=== PATIENT | male | born 1935 | race Caucasian/White ===

== ENCOUNTER 2017-10-21 13:55 | Observation (INO) | payer MEDICARE ==
[2017-10-21] VITALS (12 sets, daily range): BP systolic 96–148; BP diastolic 37–76
[~2017-10-21] VITALS: Ht 175.3 cm; Wt 84.2 kg
[~2017-10-21 13:55] MED LIST: ALLO300T8 PO; CARV6.253 PO; LEVO50TA8 PO; LISI-600 PO; MECL12.584 PO; NITR0.4T51 SL; OMEP20CA10 PO; SIMV20TA5 PO; TRAZ-143 PO
[2017-10-21] MEDS ORDERED: diphenhydrAMINE 25mg capsule PO PRN (14:25)
[2017-10-21] MEDS ORDERED: LORazepam 0.5 MG tablet PO PRN (14:25)
[2017-10-21] MEDS ORDERED: normal saline 1000ml 1,000 ML IV SCH (14:25)
[2017-10-21 15:19] LABS: PARTIAL THROMBOPLASTIN TIME 25 SECONDS (22-32); PROTHROMBIN TIME 10.6 SECONDS (9.0-12.0)
[2017-10-21] MEDS ORDERED: ASPI-920 PO (15:47)
[2017-10-21] MEDS ORDERED: atropine 0.1mg/ml 10ml syringe ONE (16:28)
[2017-10-21] MEDS ORDERED: clopidogrel 300mg tablet ONE (16:37)
[2017-10-21] MEDS ORDERED: hydrALAZINE 20mg/ml inj. IV PRN (17:15)
[2017-10-21] MEDS ORDERED: OXAZEpam 15mg capsule PO PRN (17:15)
[2017-10-21] MEDS ORDERED: HYDROcodone/acetaminophen 5mg/325mg tablet PO PRN (17:15)
[2017-10-21] MEDS ORDERED: HYDROcodone/acetaminophen 10/325mg tab PO PRN (17:15)
[2017-10-21] MEDS ORDERED: DOPamine 400MG/D5W 250ML CRITICAL CARE IV PRN (17:15)
[2017-10-21] MEDS ORDERED: phenylephrine 10mg/ml inj IV ONE (20:10)
[2017-10-21] MEDS ORDERED: heparin 1,000unit/ml 10ml vial 10 ML ONE (20:10)
[2017-10-21] MEDS ORDERED: iohexol 350 MG/ML 50ML vial IV ONE (20:10)
[2017-10-21] MEDS ORDERED: iohexol 350MG/ML 100ml bottle IV ONE (20:10)
[2017-10-21] MEDS ORDERED: LIDOcaine 1% (10mg/ml) 2ml vial ONE (20:10)
[2017-10-21] MEDS ORDERED: traZODone 50mg tablet PO SCH (21:00)
[2017-10-21] MEDS ORDERED: atorvastatin 10mg tablet PO SCH (21:00)
[2017-10-21] MEDS: carvedilol 6.25mg tablet PO SCH (22:28)
[2017-10-22 02:00] VITALS: BP 118/59
[2017-10-22 06:00] VITALS: BP 122/56
[2017-10-22] MEDS ORDERED: CLOP75TA35 PO (06:24)
[2017-10-22] MEDS ORDERED: levoTHYROXINE 25mcg tablet PO SCH (07:00)
[2017-10-22] MEDS ORDERED: pantoprazole 40mg Tablet.DR PO SCH (07:30)
[2017-10-22] MEDS: carvedilol 6.25mg tablet PO SCH (07:51)
[2017-10-22] MEDS ORDERED: clopidogrel 75mg tablet PO SCH (08:00)
[2017-10-22] MEDS ORDERED: lisinopril 20mg tablet PO SCH (08:00)
[2017-10-22 08:28] LABS: ALBUMIN 3.1 G/DL (3.4-5.0); ANION GAP 6 (8-16); BLOOD UREA NITROGEN 23 MG/DL (7-18); BUN/CREATININE RATIO 17.6 (5.4-32.0); CALCIUM 9.1 MG/DL (8.5-10.1); CHLORIDE 102 MMOL/L (99-107); CREATININE 1.31 MG/DL (0.60-1.10); GLUCOSE 113 MG/DL (70-104); POTASSIUM 4.8 MMOL/L (3.5-5.1); SODIUM 137 MMOL/L (135-145); TOTAL CARBON DIOXIDE 29.3 MMOL/L (24-32); eGFR 52 ML/MIN
[2017-10-22] MEDS ORDERED: allopurinol 300 MG tablet PO SCH (08:30)
[2017-10-22] MEDS ORDERED: aspirin 81mg tab.chew PO SCH (08:30)
== END 2017-10-22 10:08 | disposition home or self-care (01) ==
LOC: SSTAY O 13:55 → PCU 3S 19:00
PROVIDERS: ADMIT Internal Medicine Interventional Cardiology; ATTEND Internal Medicine Interventional Cardiology
DX: I65.22 Occlusion and stenosis of left carotid artery (principal); I25.10 Atherosclerotic heart disease of native coronary artery without angina pectoris; I12.9 Hypertensive chronic kidney disease with stage 1 through stage 4 chronic kidney disease, or unspecified chronic kidney disease; N18.9 Chronic kidney disease, unspecified; M10.9 Gout, unspecified; I27.20 Pulmonary hypertension, unspecified; E03.9 Hypothyroidism, unspecified; R06.02 Shortness of breath; Z85.46 Personal history of malignant neoplasm of prostate; Z95.1 Presence of aortocoronary bypass graft; Z95.5 Presence of coronary angioplasty implant and graft; Z79.02 Long term (current) use of antithrombotics/antiplatelets; Z79.899 Other long term (current) drug therapy
CPT/HCPCS: 36222; 36415; 37215; 80048; 85610; 85730; 93005; A6257; C1725; C1760; C1769; C1876; C1884; C1887; C1894; G0378; J1644; J2370; J3490; J7030; Q9967; A4620; J0461

== ENCOUNTER 2018-06-26 02:36 | Inpatient (IN) | payer MEDICARE, OTHER ==
[~2018-06-26] VITALS: Ht 175.3 cm; Wt 76.8 kg
[~2018-06-26 02:36] MED LIST changes: +ASPI-920 PO; +CLOP75TA35 PO; -TRAZ-143 PO; +TRAZ-218 PO
[2018-06-26] MEDS ORDERED: ipratropium/albuterol 3ml nebule NEB ONE (02:40)
--- NOTE | 2018-06-26 03:20 | NUR ---
piv in place, labs drawn,
[2018-06-26 03:47] LABS: PARTIAL THROMBOPLASTIN TIME 32 SECONDS (22-32); PROTHROMBIN TIME 10.3 SECONDS (9.0-12.0)
[2018-06-26] MEDS ORDERED: acetaminophen 325mg tablet PO PRN ×2 (03:55)
[2018-06-26] MEDS ORDERED: bisacodyl 10mg suppository rectal RC PRN (03:55)
[2018-06-26] MEDS ORDERED: mag hydrox/Alum hydrox/simeth 30ml oral suspension PO PRN (03:55)
[2018-06-26] MEDS ORDERED: acetaminophen 650mg rectal suppository RC PRN (03:55)
[2018-06-26] MEDS ORDERED: diphenhydrAMINE 25mg capsule PO PRN (03:55)
[2018-06-26] MEDS ORDERED: metoclopramide 5 mg/ml inj IV PRN (03:55)
[2018-06-26] MEDS ORDERED: ondansetron/PF 4mg/2ml inj IV PRN (03:55)
[2018-06-26] MEDS ORDERED: morphine 4 MG/ML inj SYRINge IV PRN ×2 (03:55)
[2018-06-26] MEDS ORDERED: magnesium hydroxide 30ml (MOM) UD suspension PO PRN (03:55)
[2018-06-26] MEDS ORDERED: diphenhydrAMINE 50 mg/ml inj IV PRN (03:55)
[2018-06-26 03:57] LABS: BASOPHILS % (AUTO) 0.2 % (0-1); EOSINOPHILS % (AUTO) 0.2 % (0-6); HEMATOCRIT 39.1 % (42.0-52.0); HEMOGLOBIN 12.7 g/dl (14.0-17.9); LYMPHOCYTES # (AUTO) 0.8 X10'3 (1.1-4.8); MEAN CORPUSCULAR HEMOGLOBIN 31.8 PG (27.0-31.0); MEAN CORPUSCULAR HGB CONC 32.5 % (33.0-36.5); MEAN CORPUSCULAR VOLUME 97.9 FL (78-98); MEAN PLATELET VOLUME 8.9 FL (7.4-10.4); MONOCYTES # (AUTO) 0.7 X10'3 (0-0.9); MONOCYTES % (AUTO) 8.9 % (2-12); NEUTROPHILS % (AUTO) 79.7 % (42-75); PLATELET COUNT 217 X10'3 (140-440); RED BLOOD COUNT 3.99 X10'6 (4.70-6.10); RED CELL DISTRIBUTION WIDTH 13.6 % (11.5-14.5); WHITE BLOOD COUNT 7.5 X10'3 (4.5-11.0)
[2018-06-26 04:00] LABS: ALANINE AMINOTRANSFERASE 23 U/L (12-78); ALBUMIN 3.6 G/DL (3.4-5.0); ALBUMIN/GLOBULIN RATIO 0.8 (1.1-1.5); ALKALINE PHOSPHATASE 86 IU/L (46-116); ANION GAP 7 (8-16); ASPARTATE AMINO TRANSFERASE 30 U/L (10-37); BILIRUBIN,TOTAL 0.5 MG/DL (0.1-1.0); BLOOD UREA NITROGEN 17 MG/DL (7-18); CALCIUM 8.9 MG/DL (8.5-10.1); CHLORIDE 98 MMOL/L (99-107); CREATININE 1.21 MG/DL (0.60-1.10); GLUCOSE 116 MG/DL (70-104); POTASSIUM 4.7 MMOL/L (3.5-5.1); SODIUM 135 MMOL/L (135-145); TOTAL CARBON DIOXIDE 30.2 MMOL/L (24-32); TOTAL PROTEIN 8.2 G/DL (6.4-8.2); eGFR 57 ML/MIN
[2018-06-26] MEDS: normal saline 1000ml 1,000 ML IV SCH ×2 (04:29→04:39)
[2018-06-26] MEDS: CefTRIAXone/D5W-Rocephin 1gm 50 ML IV SCH ×2 (04:29→20:12)
[2018-06-26 04:33] LABS: MAGNESIUM 1.9 MG/DL (1.5-2.4); PHOSPHORUS 3.7 MG/DL (2.3-4.5)
[2018-06-26 04:35] LABS: HEMOGLOBIN A1C 5.6 % (4.5-6.2)
[2018-06-26] MEDS ORDERED: enoxaparin 80mg/0.8ml syringe SUBCUT ONE (05:15)
--- NOTE | 2018-06-26 05:47 | NUR ---
DR HERNANDEZ PAGED DUE TO ORDERS FOR BOTH SQ LOVENOX AND HEPARIN
[2018-06-26] MEDS ORDERED: azithromycin/NS 500mg/250ml 250 ML IV SCH (06:00)
--- NOTE | 2018-06-26 07:10 | NUR ---
Patient in room PCU 3015. I have received report from ED Nurse and had the opportunity to ask questions and assume patient care.
--- NOTE | 2018-06-26 07:20 | NUR ---
Patient arrived on PCU Patient arrived to PCU via ED bed, escorted by two RNs.
--- NOTE | 2018-06-26 07:35 | NUR ---
Venturi mask switched to Nasal Cannula Patient switched from Venturi mask to nasal cannula at 2L/min. Patient maintained O2 sat of 95% for five minutes on nasal cannula at 2L/min.
[2018-06-26] MEDS: docusate sod 100mg capsule PO SCH ×2 (07:53→20:11)
[2018-06-26] MEDS ORDERED: heparin, porcine 5000 units/ml vial SQ SCH (08:00)
[2018-06-26] MEDS ORDERED: methylPREDNISolone sod succ 125mg/2ml vial IV SCH (08:00)
[2018-06-26 11:00] VITALS: BP 141/68
[2018-06-26 15:00] VITALS: BP 130/66
[2018-06-26 19:00] VITALS: BP 132/60
--- NOTE | 2018-06-26 20:03 | NUR ---
Dr. Loredo Paged for patient's home medication administration MESSAGE: Marc Ellis RN [phone] Mark Lanza: Pt requesting administration of home medications. Home medications have not been reconciled by physician. Patient concerned about BP med and sleep med. Thank you.
[2018-06-26] MEDS: lactobacillus rhamnosus 10,000 MMU CELLS/CAPSULE PO SCH (20:11)
[2018-06-26] MEDS ORDERED: temazepam 15mg capsule PO PRN (21:00)
--- NOTE | 2018-06-26 21:49 | NUR ---
Dr. Butterfield paged regarding home medications. MESSAGE: Marc Ellis RN [phone] Mark Lanza: Patient requesting administration of his home medications (specifically BP and sleep aid). Meds have been reviewed by RN but not addressed by MD. Patient concerned about missing dose. Thank you.
[2018-06-26 23:00] VITALS: BP 127/56
[2018-06-27] MEDS ORDERED: diltiazem CD 120mg capsule (once-daily) PO ONE (00:35)
[2018-06-27 03:00] VITALS: BP 119/42
--- NOTE | 2018-06-27 06:20 | NUR ---
Patient in room PCU 3015. I have received report from Marc ACOSTA and had the opportunity to ask questions and assume patient care. Will continue to monitor patient.
--- NOTE | 2018-06-27 06:20 | NUR ---
Problems reprioritized. Patient report given, questions answered & plan of care reviewed with Flora ACOSTA.
[2018-06-27 07:00] VITALS: BP 155/78
[2018-06-27] MEDS: CefTRIAXone/D5W-Rocephin 1gm 50 ML IV SCH ×2 (07:42→20:31)
[2018-06-27] MEDS: docusate sod 100mg capsule PO SCH ×2 (07:42→20:28)
[2018-06-27] MEDS: pantoprazole 40mg Tablet.DR PO SCH (07:43)
[2018-06-27] MEDS: methylPREDNISolone sod succ 125mg/2ml vial IV SCH (07:43)
[2018-06-27 07:44] LABS: BASOPHILS % (AUTO) 0.1 % (0-1); EOSINOPHILS % (AUTO) 0 % (0-6); HEMOGLOBIN 12.2 g/dl (14.0-17.9); LYMPHOCYTES # (AUTO) 0.8 X10'3 (1.1-4.8); LYMPHOCYTES % (AUTO) 9.4 % (21-51); MEAN CORPUSCULAR HEMOGLOBIN 31.6 PG (27.0-31.0); MEAN CORPUSCULAR HGB CONC 32.2 % (33.0-36.5); MEAN CORPUSCULAR VOLUME 98.3 FL (78-98); MEAN PLATELET VOLUME 8.7 FL (7.4-10.4); MONOCYTES # (AUTO) 0.5 X10'3 (0-0.9); MONOCYTES % (AUTO) 6.5 % (2-12); NEUTROPHILS # (AUTO) 7.1 X10'3 (1.8-7.7); PLATELET COUNT 217 X10'3 (140-440); RED BLOOD COUNT 3.86 X10'6 (4.70-6.10); RED CELL DISTRIBUTION WIDTH 14.5 % (11.5-14.5); WHITE BLOOD COUNT 8.4 X10'3 (4.5-11.0)
[2018-06-27] MEDS: carvedilol 6.25mg tablet PO SCH ×2 (07:45→20:28)
[2018-06-27] MEDS: lisinopril 20mg tablet PO SCH (07:45)
[2018-06-27] MEDS: allopurinol 300 MG tablet PO SCH (07:45)
[2018-06-27] MEDS: clopidogrel 75mg tablet PO SCH (07:45)
[2018-06-27] MEDS: aspirin 81mg tab.chew PO SCH (07:45)
[2018-06-27] MEDS: levoTHYROXINE 25mcg tablet PO SCH (07:45)
[2018-06-27] MEDS: lactobacillus rhamnosus 10,000 MMU CELLS/CAPSULE PO SCH ×2 (07:46→20:27)
[2018-06-27 07:51] LABS: ALANINE AMINOTRANSFERASE 20 U/L (12-78); ALBUMIN 3.1 G/DL (3.4-5.0); ALBUMIN/GLOBULIN RATIO 0.7 (1.1-1.5); ALKALINE PHOSPHATASE 79 IU/L (46-116); ANION GAP 10 (8-16); ASPARTATE AMINO TRANSFERASE 28 U/L (10-37); BILIRUBIN,TOTAL 0.3 MG/DL (0.1-1.0); BLOOD UREA NITROGEN 23 MG/DL (7-18); CALCIUM 8.8 MG/DL (8.5-10.1); CHLORIDE 98 MMOL/L (99-107); CHOLESTEROL 132 MG/DL (0-200); CREATININE 1.21 MG/DL (0.60-1.10); GLUCOSE 112 MG/DL (70-104); HDL CHOLESTEROL 67 MG/DL (35-60); LDL CHOLESTEROL 57 MG/DL (50-100); POTASSIUM 4.9 MMOL/L (3.5-5.1); SODIUM 137 MMOL/L (135-145); TOTAL CARBON DIOXIDE 29.2 MMOL/L (24-32); TOTAL PROTEIN 7.4 G/DL (6.4-8.2); TRIGLYCERIDES 49 MG/DL (20-135); eGFR 57 ML/MIN
[2018-06-27] MEDS ORDERED: diltiazem CD 120mg capsule (once-daily) PO SCH (08:00)
[2018-06-27 11:00] VITALS: BP 142/66
[2018-06-27 15:00] VITALS: BP 157/74
[2018-06-27 18:00] VITALS: BP 134/77
--- NOTE | 2018-06-27 18:28 | NUR ---
Problems reprioritized. Patient report given, questions answered & plan of care reviewed with Ruslan ACOSTA. Bedside report complete, patient stable at transfer of care.
--- NOTE | 2018-06-27 18:35 | NUR ---
Patient in room PCU 3015. I have received report from Flora ACOSTA and had the opportunity to ask questions and assume patient care.
[2018-06-27] MEDS: traZODone 50mg tablet PO SCH (20:27)
[2018-06-27] MEDS: atorvastatin 10mg tablet PO SCH (20:28)
[2018-06-27 22:00] VITALS: BP 146/73
[2018-06-28 02:00] VITALS: BP 150/70
[2018-06-28 06:00] VITALS: BP 103/73
--- NOTE | 2018-06-28 06:27 | NUR ---
Problems reprioritized. Patient report given, questions answered & plan of care reviewed with Nae ACOSTA.
--- NOTE | 2018-06-28 06:30 | NUR ---
Patient in room PCU 3015. I have received report from Ruslan ACOSTA and had the opportunity to ask questions and assume patient care. Patient resting comfortably in bed. In no acute distress. Will continue to monitor.
[2018-06-28 06:57] LABS: BASOPHILS % (AUTO) 0 % (0-1); EOSINOPHILS % (AUTO) 0 % (0-6); HEMATOCRIT 34.7 % (42.0-52.0); HEMOGLOBIN 11.2 g/dl (14.0-17.9); LYMPHOCYTES # (AUTO) 0.7 X10'3 (1.1-4.8); MEAN CORPUSCULAR HEMOGLOBIN 31.4 PG (27.0-31.0); MEAN CORPUSCULAR HGB CONC 32.3 % (33.0-36.5); MEAN CORPUSCULAR VOLUME 97.3 FL (78-98); MEAN PLATELET VOLUME 8.4 FL (7.4-10.4); MONOCYTES # (AUTO) 0.6 X10'3 (0-0.9); NEUTROPHILS # (AUTO) 8.3 X10'3 (1.8-7.7); PLATELET COUNT 209 X10'3 (140-440); RED BLOOD COUNT 3.57 X10'6 (4.70-6.10); RED CELL DISTRIBUTION WIDTH 14.4 % (11.5-14.5); WHITE BLOOD COUNT 9.5 X10'3 (4.5-11.0)
[2018-06-28 07:03] LABS: ANION GAP 6 (8-16); BILIRUBIN,TOTAL 0.2 MG/DL (0.1-1.0); BLOOD UREA NITROGEN 32 MG/DL (7-18); BUN/CREATININE RATIO 26.4 (5.4-32.0); CALCIUM 8.7 MG/DL (8.5-10.1); CHLORIDE 101 MMOL/L (99-107); CREATININE 1.21 MG/DL (0.60-1.10); GLUCOSE 114 MG/DL (70-104); POTASSIUM 5.2 MMOL/L (3.5-5.1); SODIUM 138 MMOL/L (135-145); TOTAL CARBON DIOXIDE 31.3 MMOL/L (24-32); TOTAL PROTEIN 6.3 G/DL (6.4-8.2); eGFR 57 ML/MIN
[2018-06-28 07:04] LABS: ALANINE AMINOTRANSFERASE 18 U/L (12-78); ALBUMIN 2.7 G/DL (3.4-5.0); ALBUMIN/GLOBULIN RATIO 0.8 (1.1-1.5); ALKALINE PHOSPHATASE 69 IU/L (46-116); ASPARTATE AMINO TRANSFERASE 22 U/L (10-37)
[2018-06-28] MEDS: CefTRIAXone/D5W-Rocephin 1gm 50 ML IV SCH ×2 (08:14→20:10)
[2018-06-28] MEDS: allopurinol 300 MG tablet PO SCH (08:15)
[2018-06-28] MEDS: lactobacillus rhamnosus 10,000 MMU CELLS/CAPSULE PO SCH ×2 (08:15→20:13)
[2018-06-28] MEDS: methylPREDNISolone sod succ 125mg/2ml vial IV SCH (08:15)
[2018-06-28] MEDS: clopidogrel 75mg tablet PO SCH (08:15)
[2018-06-28] MEDS: normal saline 1000ml 1,000 ML IV SCH (08:15)
[2018-06-28] MEDS: carvedilol 6.25mg tablet PO SCH ×2 (08:15→20:12)
[2018-06-28] MEDS: aspirin 81mg tab.chew PO SCH (08:15)
[2018-06-28] MEDS: pantoprazole 40mg Tablet.DR PO SCH (08:15)
[2018-06-28] MEDS: levoTHYROXINE 25mcg tablet PO SCH (08:16)
[2018-06-28] MEDS: docusate sod 100mg capsule PO SCH ×2 (08:16→20:13)
[2018-06-28] MEDS: lisinopril 20mg tablet PO SCH (08:16)
[2018-06-28] MEDS: guaiFENesin ER 600mg tablet PO SCH ×2 (09:33→20:11)
[2018-06-28] MEDS: furosemide 20 MG/2 ML vial IV SCH ×2 (09:33→20:10)
[2018-06-28 11:00] VITALS: BP 165/73
[2018-06-28 15:00] VITALS: BP 142/62
--- NOTE | 2018-06-28 18:30 | NUR ---
Problems reprioritized. Patient report given, questions answered & plan of care reviewed with Uriel ACOSTA.
[2018-06-28 19:00] VITALS: BP 143/63
[2018-06-28] MEDS: atorvastatin 10mg tablet PO SCH (20:12)
[2018-06-28] MEDS: traZODone 50mg tablet PO SCH (20:16)
[2018-06-28 23:00] VITALS: BP 145/66
[2018-06-29 03:00] VITALS: BP 173/102
--- NOTE | 2018-06-29 03:15 | NUR ---
pt blood pressure 179/85, notified Court MENDIETA, recieved order to give 6.25 Coreg AM now Addendum: 06/29/18 at 0505 by Gisella Carey RN Recheck BP 160/79, will continue to monitor
[2018-06-29] MEDS: carvedilol 6.25mg tablet PO SCH ×2 (03:21→09:33)
--- NOTE | 2018-06-29 06:46 | NUR ---
Problems reprioritized. Patient report given, questions answered & plan of care reviewed with Celsa ACOSTA.
[2018-06-29] MEDS: allopurinol 300 MG tablet PO SCH (07:00)
[2018-06-29] MEDS: clopidogrel 75mg tablet PO SCH (07:00)
[2018-06-29 08:42] LABS: BASOPHILS % (AUTO) 0.3 % (0-1); EOSINOPHILS % (AUTO) 0 % (0-6); HEMATOCRIT 38.4 % (42.0-52.0); HEMOGLOBIN 12.1 g/dl (14.0-17.9); LYMPHOCYTES # (AUTO) 1.4 X10'3 (1.1-4.8); LYMPHOCYTES % (AUTO) 12.2 % (21-51); MEAN CORPUSCULAR HEMOGLOBIN 31.1 PG (27.0-31.0); MEAN CORPUSCULAR HGB CONC 31.7 % (33.0-36.5); MEAN CORPUSCULAR VOLUME 98.2 FL (78-98); MEAN PLATELET VOLUME 8.4 FL (7.4-10.4); MONOCYTES # (AUTO) 0.6 X10'3 (0-0.9); MONOCYTES % (AUTO) 5.3 % (2-12); NEUTROPHILS # (AUTO) 9.5 X10'3 (1.8-7.7); NEUTROPHILS % (AUTO) 82.2 % (42-75); PLATELET COUNT 236 X10'3 (140-440); RED CELL DISTRIBUTION WIDTH 13.9 % (11.5-14.5); WHITE BLOOD COUNT 11.6 X10'3 (4.5-11.0)
[2018-06-29] MEDS: guaiFENesin ER 600mg tablet PO SCH ×2 (09:28→20:34)
[2018-06-29 09:30] LABS: ALANINE AMINOTRANSFERASE 19 U/L (12-78); ALBUMIN 2.7 G/DL (3.4-5.0); ALBUMIN/GLOBULIN RATIO 0.7 (1.1-1.5); ALKALINE PHOSPHATASE 68 IU/L (46-116); ANION GAP 5 (8-16); ASPARTATE AMINO TRANSFERASE 21 U/L (10-37); BILIRUBIN,TOTAL 0.2 MG/DL (0.1-1.0); BLOOD UREA NITROGEN 33 MG/DL (7-18); BUN/CREATININE RATIO 25.8 (5.4-32.0); CALCIUM 8.8 MG/DL (8.5-10.1); CHLORIDE 97 MMOL/L (99-107); CREATININE 1.28 MG/DL (0.60-1.10); GLUCOSE 113 MG/DL (70-104); POTASSIUM 4.6 MMOL/L (3.5-5.1); SODIUM 137 MMOL/L (135-145); TOTAL CARBON DIOXIDE 34.9 MMOL/L (24-32); TOTAL PROTEIN 6.6 G/DL (6.4-8.2); eGFR 53 ML/MIN
[2018-06-29] MEDS: lactobacillus rhamnosus 10,000 MMU CELLS/CAPSULE PO SCH ×2 (09:30→20:33)
[2018-06-29] MEDS: levoTHYROXINE 25mcg tablet PO SCH (09:31)
[2018-06-29] MEDS: lisinopril 20mg tablet PO SCH (09:32)
[2018-06-29] MEDS: aspirin 81mg tab.chew PO SCH (09:33)
[2018-06-29] MEDS: pantoprazole 40mg Tablet.DR PO SCH (09:33)
[2018-06-29] MEDS: methylPREDNISolone sod succ 125mg/2ml vial IV SCH (09:39)
[2018-06-29] MEDS: CefTRIAXone/D5W-Rocephin 1gm 50 ML IV SCH ×2 (09:39→20:31)
[2018-06-29] MEDS: furosemide 20 MG/2 ML vial IV SCH ×2 (09:39→20:26)
[2018-06-29] MEDS: docusate sod 100mg capsule PO SCH ×2 (09:52→20:33)
[2018-06-29 11:31] VITALS: BP 143/56
--- NOTE | 2018-06-29 12:01 | NUR ---
AM phys charted by Nay ACOSTA reviewed, changes made as needed. I agree with this assessment.
[2018-06-29 15:27] VITALS: BP 155/78
--- NOTE | 2018-06-29 16:10 | NUR ---
Patient's SA02 level fluctuating up and down with O2 administration and activity. Eduction given on how to TCDB and use spirometer. These treatments were effective at keeping this COPD patient's SA02 in the low 90s.
[2018-06-29 16:40] VITALS: BP 133/72
--- NOTE | 2018-06-29 18:30 | NUR ---
Patient in room PCU 3015. I have received report from Pamella RN and Nay RN and had the opportunity to ask questions and assume patient care.
--- NOTE | 2018-06-29 18:45 | NUR ---
Problems reprioritized. Patient report given, questions answered & plan of care reviewed with Sheryl ACOSTA.
[2018-06-29 19:00] VITALS: BP 170/75
--- NOTE | 2018-06-29 20:15 | NUR ---
Patient stating that he hurts 10/30. Patient has either tylenol or morphine for pain. When offered pt. stated "no, I will take mine when I get home". Explained to pt. that that would probably be in a coupe of days and I did not want him to be uncomfortable. Patient stated that he takes norco at home. offered to get order for him while here and he stated "NO, I dont want to take anything". Addendum: 06/29/18 at 2302 by Sheryl Herron RN Amended: Links added.
[2018-06-29] MEDS: traZODone 50mg tablet PO SCH (20:34)
[2018-06-29] MEDS: atorvastatin 10mg tablet PO SCH (20:35)
[2018-06-29] MEDS ORDERED: carvedilol 6.25mg tablet PO ONE (21:00)
[2018-06-29 22:00] VITALS: BP 160/79
[2018-06-30 02:00] VITALS: BP 168/85
[2018-06-30 05:53] LABS: BASOPHILS % (AUTO) 0.2 % (0-1); EOSINOPHILS # (AUTO) 0.1 X10'3 (0-0.9); HEMOGLOBIN 12.1 g/dl (14.0-17.9); LYMPHOCYTES # (AUTO) 1.4 X10'3 (1.1-4.8); MEAN CORPUSCULAR HEMOGLOBIN 31.6 PG (27.0-31.0); MEAN CORPUSCULAR HGB CONC 32.6 % (33.0-36.5); MEAN CORPUSCULAR VOLUME 96.8 FL (78-98); MEAN PLATELET VOLUME 8.4 FL (7.4-10.4); MONOCYTES # (AUTO) 0.9 X10'3 (0-0.9); MONOCYTES % (AUTO) 9.1 % (2-12); NEUTROPHILS # (AUTO) 7.7 X10'3 (1.8-7.7); NEUTROPHILS % (AUTO) 75.7 % (42-75); PLATELET COUNT 239 X10'3 (140-440); RED BLOOD COUNT 3.82 X10'6 (4.70-6.10); RED CELL DISTRIBUTION WIDTH 13.8 % (11.5-14.5); WHITE BLOOD COUNT 10.2 X10'3 (4.5-11.0)
[2018-06-30 06:09] LABS: ALANINE AMINOTRANSFERASE 21 U/L (12-78); ALBUMIN 2.6 G/DL (3.4-5.0); ALBUMIN/GLOBULIN RATIO 0.7 (1.1-1.5); ALKALINE PHOSPHATASE 64 IU/L (46-116); ANION GAP 4 (8-16); ASPARTATE AMINO TRANSFERASE 19 U/L (10-37); BILIRUBIN,TOTAL 0.3 MG/DL (0.1-1.0); BLOOD UREA NITROGEN 46 MG/DL (7-18); BUN/CREATININE RATIO 34.3 (5.4-32.0); CALCIUM 8.8 MG/DL (8.5-10.1); CHLORIDE 96 MMOL/L (99-107); CREATININE 1.34 MG/DL (0.60-1.10); GLUCOSE 98 MG/DL (70-104); POTASSIUM 4.6 MMOL/L (3.5-5.1); SODIUM 138 MMOL/L (135-145); TOTAL CARBON DIOXIDE 38.3 MMOL/L (24-32); TOTAL PROTEIN 6.3 G/DL (6.4-8.2); eGFR 51 ML/MIN
--- NOTE | 2018-06-30 06:20 | NUR ---
Patient in room PCU 3015. I have received report from BEATRIZ ACOSTA and had the opportunity to ask questions and assume patient care.
--- NOTE | 2018-06-30 06:30 | NUR ---
Problems reprioritized. Patient report given, questions answered & plan of care reviewed with Cher ACOSTA.
[2018-06-30 07:15] VITALS: BP 132/70
[2018-06-30] MEDS: guaiFENesin ER 600mg tablet PO SCH (07:41)
[2018-06-30] MEDS: lisinopril 20mg tablet PO SCH (07:42)
[2018-06-30] MEDS: lactobacillus rhamnosus 10,000 MMU CELLS/CAPSULE PO SCH (07:43)
[2018-06-30] MEDS: CefTRIAXone/D5W-Rocephin 1gm 50 ML IV SCH (07:44)
[2018-06-30] MEDS: aspirin 81mg tab.chew PO SCH (07:44)
[2018-06-30] MEDS: levoTHYROXINE 25mcg tablet PO SCH (07:44)
[2018-06-30] MEDS: carvedilol 6.25mg tablet PO SCH (07:44)
[2018-06-30] MEDS: docusate sod 100mg capsule PO SCH (07:44)
[2018-06-30] MEDS: pantoprazole 40mg Tablet.DR PO SCH (07:44)
[2018-06-30] MEDS: methylPREDNISolone sod succ 125mg/2ml vial IV SCH (07:45)
[2018-06-30] MEDS: furosemide 20 MG/2 ML vial IV SCH (07:45)
[2018-06-30] MEDS: allopurinol 300 MG tablet PO SCH (08:00)
[2018-06-30] MEDS: clopidogrel 75mg tablet PO SCH (08:00)
[2018-06-30 11:15] VITALS: BP 110/75
[2018-06-30 15:00] VITALS: BP 123/75
--- NOTE | 2018-06-30 15:37 | NUR ---
CALLED AND GAVE REPORT TO BEATRIZ. PATIENT MEDICATION ARE BEING SENT WITH PATIENT.
--- NOTE | 2018-06-30 15:50 | NUR ---
PATIENT DISCHARGED TO [facility] ALERT AND STABLE, BELONGINGS SENT INCLUDING HOME MEDICATIONS, IV AND TELE BOX REMOVED
== END 2018-06-30 15:55 | DRG 291 ==
LOC: ER 02:36 → ED HOLD 03:51 → PCU 3S 07:37
PROVIDERS: ADMIT Family Medicine; ATTEND Internal Medicine
DX: I11.0 Hypertensive heart disease with heart failure (principal); J96.01 Acute respiratory failure with hypoxia; J15.9 Unspecified bacterial pneumonia; J44.0 Chronic obstructive pulmonary disease with (acute) lower respiratory infection; J44.1 Chronic obstructive pulmonary disease with (acute) exacerbation; I50.33 Acute on chronic diastolic (congestive) heart failure; E03.9 Hypothyroidism, unspecified; F17.200 Nicotine dependence, unspecified, uncomplicated; I25.10 Atherosclerotic heart disease of native coronary artery without angina pectoris; I27.20 Pulmonary hypertension, unspecified; I48.0 Paroxysmal atrial fibrillation; Z95.1 Presence of aortocoronary bypass graft; Z23 Encounter for immunization; Z88.5 Allergy status to narcotic agent; Z79.899 Other long term (current) drug therapy; Z79.02 Long term (current) use of antithrombotics/antiplatelets; Z79.82 Long term (current) use of aspirin; Z71.6 Tobacco abuse counseling
CPT/HCPCS: 36415; 71045; 80053; 80061; 83036; 83605; 83735; 83880; 84100; 84443; 84484; 85025; 85610; 85730; 87040; 87070; 93005; 93306; 94640; 94760; 97110; 97116; 97162; 97530; 99285; G0378; J0456; J0696; J1650; J1940; J2930; J7030

== ENCOUNTER 2018-08-22 17:13 | Emergency (ER) | payer MEDICARE, OTHER ==
[~2018-08-22] VITALS: Ht 175.3 cm; Wt 79.1 kg
[~2018-08-22 17:13] MED LIST changes: -MECL12.584 PO; -NITR0.4T51 SL
[2018-08-22 18:40] LABS: BASOPHILS % (AUTO) 0.4 % (0-1); EOSINOPHILS # (AUTO) 0.1 X10'3 (0-0.9); EOSINOPHILS % (AUTO) 1.5 % (0-6); HEMATOCRIT 29.4 % (42.0-52.0); HEMOGLOBIN 9.9 g/dl (14.0-17.9); LYMPHOCYTES # (AUTO) 1.9 X10'3 (1.1-4.8); LYMPHOCYTES % (AUTO) 28.8 % (21-51); MEAN CORPUSCULAR HEMOGLOBIN 32.3 PG (27.0-31.0); MEAN CORPUSCULAR HGB CONC 33.8 g/dL (33.0-36.5); MEAN CORPUSCULAR VOLUME 95.7 FL (78-98); MEAN PLATELET VOLUME 8.7 FL (7.4-10.4); MONOCYTES # (AUTO) 0.7 X10'3 (0-0.9); MONOCYTES % (AUTO) 10.4 % (2-12); NEUTROPHILS % (AUTO) 58.9 % (42-75); PLATELET COUNT 233 X10'3 (140-440); RED BLOOD COUNT 3.07 X10'6 (4.70-6.10); RED CELL DISTRIBUTION WIDTH 14.7 % (11.5-14.5); WHITE BLOOD COUNT 6.7 X10'3 (4.5-11.0)
[2018-08-22 18:51] LABS: ALANINE AMINOTRANSFERASE 12 U/L (12-78); ALBUMIN 2.7 G/DL (3.4-5.0); ALBUMIN/GLOBULIN RATIO 0.8 (1.1-1.5); ALKALINE PHOSPHATASE 71 IU/L (46-116); ANION GAP 2 (8-16); ASPARTATE AMINO TRANSFERASE 17 U/L (10-37); BILIRUBIN,TOTAL 0.3 MG/DL (0.1-1.0); BLOOD UREA NITROGEN 25 MG/DL (7-18); BUN/CREATININE RATIO 18.2 (5.4-32.0); CALCIUM 8.2 MG/DL (8.5-10.1); CHLORIDE 97 MMOL/L (99-107); CREATININE 1.37 MG/DL (0.60-1.10); GLUCOSE 117 MG/DL (70-104); POTASSIUM 4.6 MMOL/L (3.5-5.1); SODIUM 128 MMOL/L (135-145); TOTAL CARBON DIOXIDE 29.4 MMOL/L (24-32); TOTAL PROTEIN 5.9 G/DL (6.4-8.2); eGFR 49 ML/MIN
[2018-08-22 18:52] LABS: INR 1.1 INR; PARTIAL THROMBOPLASTIN TIME 27 SECONDS (22-32); PROTHROMBIN TIME 10.8 SECONDS (9.0-12.0)
[2018-08-22] MEDS ORDERED: normal saline 1000ML IV soln IVB ONE (19:00)
--- NOTE | 2018-08-22 19:09 | NUR ---
He is laying in bed, visiting with his . updated on POC
[2018-08-22 19:47] VITALS: BP 188/91
== END 2018-08-22 19:48 | disposition home or self-care (01) ==
LOC: ER 17:13
DX: I10 Essential (primary) hypertension (principal); E87.1 Hypo-osmolality and hyponatremia; I25.10 Atherosclerotic heart disease of native coronary artery without angina pectoris; K21.9 Gastro-esophageal reflux disease without esophagitis; G89.29 Other chronic pain; M19.90 Unspecified osteoarthritis, unspecified site; Z95.1 Presence of aortocoronary bypass graft; Z88.6 Allergy status to analgesic agent; Z79.82 Long term (current) use of aspirin; Z79.899 Other long term (current) drug therapy
CPT/HCPCS: 36415; 80053; 84484; 85025; 85610; 85730; 93005; 96360; 99284; J7030

== ENCOUNTER 2019-01-25 16:46 | Inpatient (IN) | payer MEDICARE, MEDICAID ==
[~2019-01-25] VITALS: Ht 175.3 cm; Wt 81.4 kg
[~2019-01-25 16:46] MED LIST changes: -OMEP20CA10 PO; +OMEP20CA11 PO; -TRAZ-218 PO; +TRAZ-251 PO
[2019-01-25] MEDS ORDERED: ondansetron/PF 4mg/2ml inj IV ONE (17:40)
[2019-01-25 17:55] LABS: CLARITY,URINE CLOUDY (Clear); COLOR,URINE YELLOW (Yellow); GLUCOSE, URINE NEGATIVE (Neg); KETONES,URINE NEGATIVE (Neg); LEUKOCYTE ESTERASE ,URINE NEGATIVE (Neg); NITRITES, URINE NEGATIVE (Neg); OCCULT BLOOD,URINE TRACE-INTACT (Neg); PH,URINE 5.5 (4.8-8.0); PROTEIN,URINE >=300 mg/dl (Neg)
[2019-01-25 17:57] LABS: UA COLLECTION TYPE STRAIGHT CATH
[2019-01-25 18:17] LABS: BACTERIA,URINE FEW /HPF (Neg); RBC,URINE 0-2 /HPF (0-2); SQUAMOUS EPITHELIAL CELL,UR FEW /LPF (FEW); WBC,URINE 0-4 /HPF (0-4)
[2019-01-25 18:34] LABS: BASOPHILS % (AUTO) 0.2 % (0-1); EOSINOPHILS % (AUTO) 0.4 % (0-6); HEMATOCRIT 30.3 % (42.0-52.0); HEMOGLOBIN 9.6 g/dl (14.0-17.9); LYMPHOCYTES # (AUTO) 0.7 X10'3 (1.1-4.8); LYMPHOCYTES % (AUTO) 14.5 % (21-51); MEAN CORPUSCULAR HEMOGLOBIN 32.4 PG (27.0-31.0); MEAN CORPUSCULAR HGB CONC 31.6 g/dL (33.0-36.5); MEAN CORPUSCULAR VOLUME 102.7 FL (78-98); MEAN PLATELET VOLUME 9.3 FL (7.4-10.4); MONOCYTES # (AUTO) 0.4 X10'3 (0-0.9); NEUTROPHILS # (AUTO) 3.8 X10'3 (1.8-7.7); NEUTROPHILS % (AUTO) 75.9 % (42-75); PLATELET COUNT 170 X10'3 (140-440); RED BLOOD COUNT 2.95 X10'6 (4.70-6.10); RED CELL DISTRIBUTION WIDTH 18.4 % (11.5-14.5)
[2019-01-25 18:35] LABS: ALANINE AMINOTRANSFERASE 18 U/L (12-78); ALBUMIN 2.6 G/DL (3.4-5.0); ALBUMIN/GLOBULIN RATIO 0.6 (1.1-1.5); ALKALINE PHOSPHATASE 113 IU/L (46-116); ANION GAP 3 (8-16); ASPARTATE AMINO TRANSFERASE 26 U/L (10-37); BILIRUBIN,TOTAL 0.5 MG/DL (0.1-1.0); BLOOD UREA NITROGEN 42 MG/DL (7-18); BUN/CREATININE RATIO 22.6 (5.4-32.0); CALCIUM 8.9 MG/DL (8.5-10.1); CHLORIDE 100 MMOL/L (99-107); CREATININE 1.86 MG/DL (0.60-1.10); GLUCOSE 111 MG/DL (70-104); MAGNESIUM 1.9 MG/DL (1.5-2.4); POTASSIUM 5.6 MMOL/L (3.5-5.1); SODIUM 134 MMOL/L (135-145); TOTAL PROTEIN 7.3 G/DL (6.4-8.2); eGFR 35 ML/MIN
--- NOTE | 2019-01-25 18:45 | NUR ---
Patient is resting comfortably in bed. His only request at this time is a warm blanket which is provided.
[2019-01-25] MEDS ORDERED: aspirin 325mg tablet PO ONE (18:55)
[2019-01-25] MEDS ORDERED: furosemide 10 MG/1 ML 10ml inj IV ONE (20:40)
[2019-01-25] MEDS ORDERED: potassium Cl 20 mEq SR tablet PO PRN ×2 (22:35)
[2019-01-25] MEDS ORDERED: potassium CL 10mEq/100ml bag 100 ML IV PRN ×2 (22:35)
[2019-01-25] MEDS ORDERED: morphine 2 MG/ML inj. syringe IV PRN (22:35)
[2019-01-25] MEDS ORDERED: magnesium Cl slow-release 64mg tablet PO PRN (22:35)
[2019-01-25] MEDS ORDERED: magnesium 2GM in 50ml NS 50 ML IV PRN (22:35)
[2019-01-25] MEDS ORDERED: ondansetron/PF 4mg/2ml inj IV PRN (22:35)
[2019-01-25] MEDS ORDERED: magnesium 4gm in 100ml NS 100 ML IV PRN (22:35)
[2019-01-25] MEDS ORDERED: acetaminophen 325mg tablet PO PRN (22:35)
--- NOTE | 2019-01-25 22:50 | NUR ---
Received report from Deion ED RN. Patient arrived with Dustin ACOSTA transporting him via gurney. Patient was transferred to bed with no apparent distress.
[2019-01-25] MEDS: lisinopril 20mg tablet PO SCH (23:43)
[2019-01-26] VITALS: BP 148/85
[2019-01-26 06:27] LABS: BASOPHILS % (AUTO) 0.2 % (0-1); EOSINOPHILS # (AUTO) 0.1 X10'3 (0-0.9); EOSINOPHILS % (AUTO) 1.2 % (0-6); HEMOGLOBIN 8.8 g/dl (14.0-17.9); LYMPHOCYTES # (AUTO) 0.9 X10'3 (1.1-4.8); LYMPHOCYTES % (AUTO) 18.8 % (21-51); MEAN CORPUSCULAR HEMOGLOBIN 33.2 PG (27.0-31.0); MEAN CORPUSCULAR HGB CONC 32.5 g/dL (33.0-36.5); MEAN CORPUSCULAR VOLUME 102.2 FL (78-98); MEAN PLATELET VOLUME 9.1 FL (7.4-10.4); MONOCYTES # (AUTO) 0.6 X10'3 (0-0.9); MONOCYTES % (AUTO) 11.7 % (2-12); NEUTROPHILS # (AUTO) 3.4 X10'3 (1.8-7.7); NEUTROPHILS % (AUTO) 68.1 % (42-75); PLATELET COUNT 152 X10'3 (140-440); RED BLOOD COUNT 2.65 X10'6 (4.70-6.10); RED CELL DISTRIBUTION WIDTH 17.8 % (11.5-14.5)
[2019-01-26 06:30] LABS: ALBUMIN 2.2 G/DL (3.4-5.0); ANION GAP 3 (8-16); BLOOD UREA NITROGEN 47 MG/DL (7-18); BUN/CREATININE RATIO 25.5 (5.4-32.0); CALCIUM 8.6 MG/DL (8.5-10.1); CHLORIDE 100 MMOL/L (99-107); CREATININE 1.84 MG/DL (0.60-1.10); GLUCOSE 95 MG/DL (70-104); MAGNESIUM 2.1 MG/DL (1.5-2.4); POTASSIUM 5.5 MMOL/L (3.5-5.1); SODIUM 136 MMOL/L (135-145); TOTAL CARBON DIOXIDE 32.8 MMOL/L (24-32); TROPONIN I 0.08 NG/ML (0.0-0.05); eGFR 35 ML/MIN
--- NOTE | 2019-01-26 06:30 | NUR ---
Patient in room NAYANA 347. I have received report from KARLA Andrews and had the opportunity to ask questions and assume patient care.
--- NOTE | 2019-01-26 06:30 | NUR ---
Problems reprioritized. Patient report given, questions answered & plan of care reviewed with KARLA Finney.
[2019-01-26] MEDS: pantoprazole 40mg Tablet.DR PO SCH (07:42)
[2019-01-26] MEDS: docusate sod 100mg capsule PO SCH ×2 (07:42→22:23)
[2019-01-26] MEDS: furosemide 40mg/4ml inj IV SCH ×2 (07:43→22:23)
[2019-01-26] MEDS: allopurinol 300 MG tablet PO SCH (07:43)
[2019-01-26] MEDS: carvedilol 6.25mg tablet PO SCH ×2 (07:43→22:25)
[2019-01-26] MEDS: lisinopril 20mg tablet PO SCH (07:43)
[2019-01-26] MEDS: aspirin 81mg tablet.DR PO SCH (07:43)
[2019-01-26] MEDS: levoTHYROXINE 25mcg tablet PO SCH (07:43)
[2019-01-26] MEDS: heparin, porcine 5000 units/ml vial SQ SCH ×2 (07:48→22:23)
[2019-01-26 08:00] VITALS: BP 152/82
[2019-01-26] MEDS: K and/or MAG REPLACEMENT MC SCH (08:00)
[2019-01-26] MEDS ORDERED: sodium polystyrene sulfonate 15gm/60ml oral suspension PO ONE (10:50)
[2019-01-26 12:00] VITALS: BP 137/68
--- NOTE | 2019-01-26 16:00 | NUR ---
Found two skin tears on patient's upper thigh/lower buttock cheek on both L and R side-medial aspect bilaterally. Wound photos taken and documented in pt's chart. Applied calazime and optifoam to both skin problem areas on medial inner upper thighs.
--- NOTE | 2019-01-26 18:15 | NUR ---
Patient in room NAYANA 347. I have received report from Domenica ACOSTA and had the opportunity to ask questions and assume patient care.
--- NOTE | 2019-01-26 18:39 | NUR ---
Problems reprioritized. Patient report given, questions answered & plan of care reviewed with KARLA Saucedo.
[2019-01-26 19:00] VITALS: BP 164/79
[2019-01-26] MEDS: traZODone 50mg tablet PO SCH (22:24)
[2019-01-26] MEDS: famotidine 20mg tablet PO SCH (22:24)
[2019-01-26] MEDS: atorvastatin 10mg tablet PO SCH (22:24)
[2019-01-27] VITALS: BP 115/59
--- NOTE | 2019-01-27 01:24 | NUR ---
Called MD with regard to patient's Potassium level still high at 5.4 after having kayexalate earlier today. MD gave no new orders.
[2019-01-27 05:00] LABS: BASOPHILS % (AUTO) 0.1 % (0-1); EOSINOPHILS % (AUTO) 0.8 % (0-6); HEMATOCRIT 25.8 % (42.0-52.0); HEMOGLOBIN 8.3 g/dl (14.0-17.9); LYMPHOCYTES # (AUTO) 0.9 X10'3 (1.1-4.8); LYMPHOCYTES % (AUTO) 16.5 % (21-51); MEAN CORPUSCULAR HEMOGLOBIN 32.8 PG (27.0-31.0); MEAN CORPUSCULAR VOLUME 102.5 FL (78-98); MEAN PLATELET VOLUME 9.4 FL (7.4-10.4); MONOCYTES # (AUTO) 0.5 X10'3 (0-0.9); MONOCYTES % (AUTO) 10.1 % (2-12); NEUTROPHILS # (AUTO) 3.9 X10'3 (1.8-7.7); NEUTROPHILS % (AUTO) 72.5 % (42-75); PLATELET COUNT 144 X10'3 (140-440); RED BLOOD COUNT 2.52 X10'6 (4.70-6.10); RED CELL DISTRIBUTION WIDTH 17.9 % (11.5-14.5); WHITE BLOOD COUNT 5.3 X10'3 (4.5-11.0)
[2019-01-27 05:08] LABS: ALBUMIN 2.1 G/DL (3.4-5.0); ANION GAP 0 (8-16); BLOOD UREA NITROGEN 46 MG/DL (7-18); BUN/CREATININE RATIO 23.5 (5.4-32.0); CHLORIDE 102 MMOL/L (99-107); CREATININE 1.96 MG/DL (0.60-1.10); GLUCOSE 96 MG/DL (70-104); MAGNESIUM 1.7 MG/DL (1.5-2.4); POTASSIUM 4.8 MMOL/L (3.5-5.1); SODIUM 138 MMOL/L (135-145); TOTAL CARBON DIOXIDE 35.6 MMOL/L (24-32); eGFR 33 ML/MIN
--- NOTE | 2019-01-27 06:15 | NUR ---
Problems reprioritized. Patient report given, questions answered & plan of care reviewed with Kacie ACOSTA.
[2019-01-27 07:00] VITALS: BP 128/68
--- NOTE | 2019-01-27 07:20 | NUR ---
Patient in room NAYANA 347. I have received report from BEATRIZ ACOSTA and had the opportunity to ask questions and assume patient care.
[2019-01-27] MEDS: K and/or MAG REPLACEMENT MC SCH (08:00)
[2019-01-27] MEDS: carvedilol 6.25mg tablet PO SCH ×2 (08:12→20:14)
[2019-01-27] MEDS: aspirin 81mg tablet.DR PO SCH (08:12)
[2019-01-27] MEDS: lisinopril 20mg tablet PO SCH (08:12)
[2019-01-27] MEDS: allopurinol 300 MG tablet PO SCH (08:12)
[2019-01-27] MEDS: heparin, porcine 5000 units/ml vial SQ SCH ×2 (08:12→20:12)
[2019-01-27] MEDS: pantoprazole 40mg Tablet.DR PO SCH (08:12)
[2019-01-27] MEDS: docusate sod 100mg capsule PO SCH ×2 (08:12→20:13)
[2019-01-27] MEDS: furosemide 40mg/4ml inj IV SCH ×2 (08:13→20:11)
[2019-01-27] MEDS: levoTHYROXINE 25mcg tablet PO SCH (08:14)
[2019-01-27 11:00] VITALS: BP 110/56
--- NOTE | 2019-01-27 14:36 | NUR ---
PT TO HAVE THORACENTESIS ON FRIDAY MORNING. HOLD FRIDAY PM AND FRIDAY AM DOSE OF HEPARIN. DO NOT RESTART PLAVIX IF INDICATED.
--- NOTE | 2019-01-27 14:43 | NUR ---
IR team to patient bedside scanned for Thoracentesis fluid was seen but patient stated that he had taken Plavix the Day he came into the hospital and had received Heparin Sub Q this morning. Dr Avitia called Dr Butterfield and Greer informed that patient can wait tell Friday and be reevaluated then for Thoracentesis.
--- NOTE | 2019-01-27 17:47 | NUR ---
RECEIVED REPORT FROM BEATRIZ ACOSTA
[2019-01-27 18:00] VITALS: BP 145/75
--- NOTE | 2019-01-27 18:22 | NUR ---
Problems reprioritized. Patient report given, questions answered & plan of care reviewed with TALAT ACOSTA.
--- NOTE | 2019-01-27 18:23 | NUR ---
Patient in room NAYANA 347. I have received report from KARLA Hester and had the opportunity to ask questions and assume patient care.
[2019-01-27] MEDS: atorvastatin 10mg tablet PO SCH (20:13)
[2019-01-27] MEDS: famotidine 20mg tablet PO SCH (20:13)
[2019-01-27] MEDS: traZODone 50mg tablet PO SCH (20:13)
[2019-01-27] MEDS: guaiFENesin ER 600mg tablet PO SCH (20:13)
[2019-01-28] VITALS: BP 149/76
[2019-01-28 05:25] LABS: BASOPHILS % (AUTO) 0.3 % (0-1); EOSINOPHILS # (AUTO) 0.1 X10'3 (0-0.9); EOSINOPHILS % (AUTO) 1.4 % (0-6); HEMATOCRIT 25.7 % (42.0-52.0); HEMOGLOBIN 8.3 g/dl (14.0-17.9); LYMPHOCYTES # (AUTO) 1.3 X10'3 (1.1-4.8); LYMPHOCYTES % (AUTO) 22.8 % (21-51); MEAN CORPUSCULAR HEMOGLOBIN 32.8 PG (27.0-31.0); MEAN CORPUSCULAR HGB CONC 32.3 g/dL (33.0-36.5); MEAN CORPUSCULAR VOLUME 101.6 FL (78-98); MEAN PLATELET VOLUME 8.4 FL (7.4-10.4); MONOCYTES # (AUTO) 0.5 X10'3 (0-0.9); NEUTROPHILS # (AUTO) 3.8 X10'3 (1.8-7.7); NEUTROPHILS % (AUTO) 66.5 % (42-75); PLATELET COUNT 138 X10'3 (140-440); RED BLOOD COUNT 2.53 X10'6 (4.70-6.10); RED CELL DISTRIBUTION WIDTH 17.8 % (11.5-14.5); WHITE BLOOD COUNT 5.6 X10'3 (4.5-11.0)
[2019-01-28 05:43] LABS: ANION GAP 1 (8-16); BLOOD UREA NITROGEN 49 MG/DL (7-18); BUN/CREATININE RATIO 24.7 (5.4-32.0); CHLORIDE 102 MMOL/L (99-107); CREATININE 1.98 MG/DL (0.60-1.10); GLUCOSE 95 MG/DL (70-104); MAGNESIUM 1.5 MG/DL (1.5-2.4); POTASSIUM 4.8 MMOL/L (3.5-5.1); SODIUM 140 MMOL/L (135-145); TOTAL CARBON DIOXIDE 37.2 MMOL/L (24-32); eGFR 32 ML/MIN
--- NOTE | 2019-01-28 07:19 | NUR ---
Patient in room NAYANA 347. I have received report from TALAT ACOSTA and had the opportunity to ask questions and assume patient care.
[2019-01-28 08:00] VITALS: BP 108/69
[2019-01-28] MEDS: K and/or MAG REPLACEMENT MC SCH (08:00)
[2019-01-28] MEDS: allopurinol 300 MG tablet PO SCH (08:47)
[2019-01-28] MEDS: levoTHYROXINE 25mcg tablet PO SCH (08:47)
[2019-01-28] MEDS: furosemide 40mg/4ml inj IV SCH ×2 (08:47→20:07)
[2019-01-28] MEDS: aspirin 81mg tablet.DR PO SCH (08:48)
[2019-01-28] MEDS: lisinopril 20mg tablet PO SCH (08:48)
[2019-01-28] MEDS: carvedilol 6.25mg tablet PO SCH ×2 (08:48→20:08)
[2019-01-28] MEDS: guaiFENesin ER 600mg tablet PO SCH ×2 (08:48→20:08)
[2019-01-28] MEDS: docusate sod 100mg capsule PO SCH ×2 (08:48→20:07)
[2019-01-28] MEDS: heparin, porcine 5000 units/ml vial SQ SCH ×2 (08:51→19:47)
[2019-01-28] MEDS: pantoprazole 40mg Tablet.DR PO SCH (08:55)
[2019-01-28 11:00] VITALS: BP 100/58
--- NOTE | 2019-01-28 18:07 | NUR ---
Problems reprioritized. Patient report given, questions answered & plan of care reviewed with MUNIR ACOSTA.
--- NOTE | 2019-01-28 18:45 | NUR ---
Patient in room NAYANA 347. I have received report from KARLA Hester and had the opportunity to ask questions and assume patient care. Addendum: 01/29/19 at 0044 by Madhavi Hutton RN Amended: Links added.
[2019-01-28 19:30] VITALS: BP 133/64
[2019-01-28] MEDS: traZODone 50mg tablet PO SCH (20:07)
[2019-01-28] MEDS: famotidine 20mg tablet PO SCH (20:08)
[2019-01-28] MEDS: atorvastatin 10mg tablet PO SCH (20:09)
[2019-01-28 23:00] VITALS: BP 131/65
--- NOTE | 2019-01-28 23:00 | NUR ---
Complete bed bath given. pt refuses oral care, skin is dry, lotion applied. to back and legs. Addendum: 01/29/19 at 0054 by Madhavi Hutton RN Amended: Links added.
[2019-01-29] MEDS ORDERED: LORazepam 1 MG tablet PO ONE (02:55)
[2019-01-29 02:57] VITALS: BP 138/70
[2019-01-29 05:01] LABS: BASOPHILS % (AUTO) 0.4 % (0-1); EOSINOPHILS # (AUTO) 0.1 X10'3 (0-0.9); EOSINOPHILS % (AUTO) 1.5 % (0-6); HEMATOCRIT 26.3 % (42.0-52.0); HEMOGLOBIN 8.5 g/dl (14.0-17.9); LYMPHOCYTES # (AUTO) 1.3 X10'3 (1.1-4.8); LYMPHOCYTES % (AUTO) 20.1 % (21-51); MEAN CORPUSCULAR HGB CONC 32.2 g/dL (33.0-36.5); MEAN CORPUSCULAR VOLUME 102.3 FL (78-98); MEAN PLATELET VOLUME 9.3 FL (7.4-10.4); MONOCYTES # (AUTO) 0.6 X10'3 (0-0.9); MONOCYTES % (AUTO) 10.1 % (2-12); NEUTROPHILS # (AUTO) 4.3 X10'3 (1.8-7.7); NEUTROPHILS % (AUTO) 67.9 % (42-75); PLATELET COUNT 149 X10'3 (140-440); RED BLOOD COUNT 2.57 X10'6 (4.70-6.10); RED CELL DISTRIBUTION WIDTH 18.1 % (11.5-14.5); WHITE BLOOD COUNT 6.4 X10'3 (4.5-11.0)
[2019-01-29 05:09] LABS: ALBUMIN 2.1 G/DL (3.4-5.0); ANION GAP 1 (8-16); BLOOD UREA NITROGEN 50 MG/DL (7-18); BUN/CREATININE RATIO 23.7 (5.4-32.0); CALCIUM 8.7 MG/DL (8.5-10.1); CHLORIDE 101 MMOL/L (99-107); CREATININE 2.11 MG/DL (0.60-1.10); GLUCOSE 109 MG/DL (70-104); MAGNESIUM 1.5 MG/DL (1.5-2.4); POTASSIUM 4.6 MMOL/L (3.5-5.1); SODIUM 141 MMOL/L (135-145); TOTAL CARBON DIOXIDE 39.3 MMOL/L (24-32); eGFR 30 ML/MIN
[2019-01-29 06:00] VITALS: BP 111/57
[2019-01-29] MEDS: heparin, porcine 5000 units/ml vial SQ SCH ×2 (06:07→12:31)
--- NOTE | 2019-01-29 06:26 | NUR ---
Problems reprioritized. Patient report given, questions answered & plan of care reviewed with KARLA Hester. Addendum: 01/29/19 at 0286 by Madhavi Hutton RN Amended: Links added.
--- NOTE | 2019-01-29 06:45 | NUR ---
Patient in room NAYANA 347. I have received report from MUNIR ACOSTA and had the opportunity to ask questions and assume patient care.
[2019-01-29] MEDS: levoTHYROXINE 25mcg tablet PO SCH (07:00)
[2019-01-29] MEDS: pantoprazole 40mg Tablet.DR PO SCH (07:30)
[2019-01-29] MEDS: K and/or MAG REPLACEMENT MC SCH (08:00)
--- NOTE | 2019-01-29 09:00 | NUR ---
recommended to physical therapy that pt be seen early in the day preferably morning. he is more cooperative. Addendum: 01/29/19 at 0948 by Kacie Rose RN wrong pt
[2019-01-29] MEDS: lisinopril 20mg tablet PO SCH (09:03)
[2019-01-29] MEDS: furosemide 40mg/4ml inj IV SCH ×2 (09:03→15:11)
[2019-01-29] MEDS: carvedilol 6.25mg tablet PO SCH ×2 (09:03→15:11)
[2019-01-29] MEDS: allopurinol 300 MG tablet PO SCH (09:03)
[2019-01-29] MEDS: docusate sod 100mg capsule PO SCH ×2 (09:04→20:37)
[2019-01-29] MEDS: guaiFENesin ER 600mg tablet PO SCH ×2 (09:04→20:36)
[2019-01-29] MEDS: aspirin 81mg tablet.DR PO SCH (09:08)
[2019-01-29 11:00] VITALS: BP 100/52
--- NOTE | 2019-01-29 11:29 | NUR ---
CALL TO RN RENETTA PT TO HAVE THORA TOMORROW PATIENT P CONTINUES TO BE LABILE. CHIN TO CALL RUSU. HEPARIN TO BE HELD.
--- NOTE | 2019-01-29 14:39 | NUR ---
AT 100 THIS MORNING PT STARTED TO DESAT. BUMPED UP HIS OXYGEN AND HE CAME BACK OF TO 91%. PT COULD NOT KEEP HIS SAT UP. SET HIS 02 AT 4 LITRES AND TOOK HIS BP. 1000: BP 96/55 1008 BP 77/37. AT THIS TIME QUYENENBERGED HIM AND CALLED THE HOSPITALIST. HE SAID TO MONITOR. 1015 PTS BP WENT TO 69/40 AND HE COULD NOT KEEP HIS SATS UP. THEY WENT DOWN TO 70% PUT ON A REBREATHER AND BUMPED HIM UP TO 15 LITRES. CALLED A RAPID. AT 1028 BP WAS 97/55 AND SATS WERE AT 97%. I HAVE BEEN MONITORING HIS BP Q30MIN AND HAVE PULSE OX ON
--- NOTE | 2019-01-29 16:00 | NUR ---
PT ALERT AND ASKING QUESTIONS. HE WANTS TO GET UP AND SIT ON COMMODE.
--- NOTE | 2019-01-29 18:10 | NUR ---
gave report to risa granger
[2019-01-29 18:30] VITALS: BP 134/72
--- NOTE | 2019-01-29 18:30 | NUR ---
Patient in room NAYANA 347. I have received report from Kacie ACOSTA and had the opportunity to ask questions and assume patient care.
[2019-01-29] MEDS: atorvastatin 10mg tablet PO SCH (20:36)
[2019-01-29] MEDS: traZODone 50mg tablet PO SCH (20:37)
[2019-01-29] MEDS: famotidine 20mg tablet PO SCH (20:37)
[2019-01-29] MEDS: nicotine 7mg patch - 24hr TD SCH (21:15)
[2019-01-29 23:55] VITALS: BP 142/67
[2019-01-30] VITALS (18 sets, daily range): BP systolic 108–172; BP diastolic 49–106
--- NOTE | 2019-01-30 03:30 | NUR ---
Patient o2 rising and falling to extremes on 2-3 L of oxygen. Ranging from 77-100% o2 sats, seemingly at random. For example, pt will be 99% on 3L, and drop to 80 when on 2L o2. At 2.5L, pt will range between 80 and 96% o2. No in-between. Tino MENDIETA called. Continuous pulse ox and ABGs ordered. ABG results called to Tino MENDIETA, pt will be transferred to telemetry floor with Bipap. Patient currently in stable condition, A+Ox4.
[2019-01-30 03:50] LABS: ABG HCO3 42.2 mmol/L (22.0-26.0); ABG OXYGEN SATURATION 98.7 % (95-98); ABG PCO2 (T) 80.1 mmHg (35.0-45.0); ABG PH (T) 7.338 (7.350-7.450); ABG PO2 (T) 149.3 mmHg (83-108); ALLEN'S TEST Positive; FCOHb 0.6 % (0.5-1.5); FLOW 2 L/min; FMetHb 0.3 % (0.3-1.12); FO2Hb 97.8 % (94-100); PATIENT TEMPERATURE 36.7; TOTAL HEMOGLOBIN 9.2 G/dl (14.0-17.9)
--- NOTE | 2019-01-30 04:25 | NUR ---
Patient arrived to room 3015B from surgical. All belongings on person. RT in room with bipap set up. Pt hooked up to mobile #[id number]. Vital signs stable. Patient oriented to room, call light, plan of care and all questions answered. Will continue to monitor.
--- NOTE | 2019-01-30 04:28 | NUR ---
Pt moved to tele 3015B with all belongings in stable condition. Tele monitor and o2 monitor attached during transit. Pt hooked up to 2L of o2 and Bipap in room with resp. therapist ready to connect him. Tiffanie ACOSTA given report.
[2019-01-30 05:18] LABS: ALBUMIN 2.1 G/DL (3.4-5.0); ANION GAP 3 (8-16); BLOOD UREA NITROGEN 60 MG/DL (7-18); BUN/CREATININE RATIO 26.1 (5.4-32.0); CALCIUM 8.1 MG/DL (8.5-10.1); CHLORIDE 101 MMOL/L (99-107); GLUCOSE 89 MG/DL (70-104); MAGNESIUM 1.4 MG/DL (1.5-2.4); POTASSIUM 4.9 MMOL/L (3.5-5.1); SODIUM 142 MMOL/L (135-145); TOTAL CARBON DIOXIDE 38.5 MMOL/L (24-32); eGFR 27 ML/MIN
--- NOTE | 2019-01-30 06:20 | NUR ---
Problems reprioritized. Patient report given, questions answered & plan of care reviewed with Jason ACOSTA.
[2019-01-30] MEDS: heparin, porcine 5000 units/ml vial SQ SCH ×2 (06:48→20:00)
--- NOTE | 2019-01-30 06:52 | NUR ---
Patient in room PCU 3015. I have received report from Tiffanie and had the opportunity to ask questions and assume patient care.
[2019-01-30 07:15] LABS: BASOPHILS % (AUTO) 0.3 % (0-1); EOSINOPHILS # (AUTO) 0.1 X10'3 (0-0.9); EOSINOPHILS % (AUTO) 1.2 % (0-6); HEMATOCRIT 27.5 % (42.0-52.0); HEMOGLOBIN 8.7 g/dl (14.0-17.9); LYMPHOCYTES # (AUTO) 1.4 X10'3 (1.1-4.8); LYMPHOCYTES % (AUTO) 25.1 % (21-51); MEAN CORPUSCULAR HEMOGLOBIN 32.1 PG (27.0-31.0); MEAN CORPUSCULAR HGB CONC 31.4 g/dL (33.0-36.5); MEAN CORPUSCULAR VOLUME 102.2 FL (78-98); MEAN PLATELET VOLUME 9.8 FL (7.4-10.4); MONOCYTES # (AUTO) 0.5 X10'3 (0-0.9); MONOCYTES % (AUTO) 8.4 % (2-12); NEUTROPHILS # (AUTO) 3.7 X10'3 (1.8-7.7); PLATELET COUNT 154 X10'3 (140-440); RED BLOOD COUNT 2.69 X10'6 (4.70-6.10); RED CELL DISTRIBUTION WIDTH 18.1 % (11.5-14.5); WHITE BLOOD COUNT 5.8 X10'3 (4.5-11.0)
[2019-01-30] MEDS: levoTHYROXINE 25mcg tablet PO SCH (07:50)
[2019-01-30] MEDS: aspirin 81mg tablet.DR PO SCH (07:50)
[2019-01-30] MEDS: pantoprazole 40mg Tablet.DR PO SCH (07:50)
[2019-01-30] MEDS: lisinopril 20mg tablet PO SCH (07:50)
[2019-01-30] MEDS: allopurinol 300 MG tablet PO SCH (07:51)
[2019-01-30] MEDS: guaiFENesin ER 600mg tablet PO SCH ×2 (07:51→20:33)
[2019-01-30] MEDS: carvedilol 6.25mg tablet PO SCH ×2 (07:51→20:33)
[2019-01-30] MEDS: docusate sod 100mg capsule PO SCH ×2 (07:51→20:33)
[2019-01-30] MEDS: furosemide 40mg/4ml inj IV SCH ×2 (07:51→20:32)
[2019-01-30] MEDS: K and/or MAG REPLACEMENT MC SCH (08:00)
[2019-01-30 09:11] LABS: ABG HCO3 36.9 mmol/L (22.0-26.0); ABG OXYGEN SATURATION 89.6 % (95-98); ABG PCO2 (T) 56.8 mmHg (35.0-45.0); ALLEN'S TEST Positive; FCOHb 0.5 % (0.5-1.5); FMetHb 0.2 % (0.3-1.12); MINUTE VOLUME 15 L/min; RESPIRATORY RATE 16 b/min; RESPIRATORY RATE (OBSERVED) 26 b/min; TIDAL VOLUME 607 mL; TOTAL HEMOGLOBIN 9.5 G/dl (14.0-17.9)
[2019-01-30] MEDS ORDERED: potassium CL 10mEq/100ml bag 100 ML IV PRN (09:40)
[2019-01-30] MEDS ORDERED: potassium Cl 20 mEq SR tablet PO PRN ×2 (09:40)
[2019-01-30] MEDS ORDERED: magnesium 4gm in 100ml NS 100 ML IV PRN (09:40)
--- NOTE | 2019-01-30 10:57 | NUR ---
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 Pt on Lasix and diuresing well per MD notes. Pt currently on heart healthy diet with documented 75-100% PO intake meeting nutrient needs. LBM 01/29. No nutrition diagnosis at this time. Per MD notes possibly to d/c pt to rehab soon. Will continue to follow. Recommendations: 1) Continue with heart healthy diet 2) Wt per rx Addendum: 01/30/19 at [address] Amended: Links added.
[2019-01-30] MEDS: magnesium Cl slow-release 64mg tablet PO PRN (11:11)
--- NOTE | 2019-01-30 17:13 | NUR ---
PAGER ID: [phone] MESSAGE: [id number] Mark Rowell: Do you want his body fluids from the thoracentesis sent down at all for any labs or should we just toss it? KARLA Gomez Ext [phone]
--- NOTE | 2019-01-30 18:15 | NUR ---
Patient in room PCU 3015. I have received report from Jason ACOSTA and had the opportunity to ask questions and assume patient care.
--- NOTE | 2019-01-30 18:37 | NUR ---
Problems reprioritized. Patient report given, questions answered & plan of care reviewed with KARLA Moreno.
[2019-01-30] MEDS: nicotine 7mg patch - 24hr TD SCH (20:32)
[2019-01-30] MEDS: famotidine 20mg tablet PO SCH (20:33)
[2019-01-30] MEDS: atorvastatin 10mg tablet PO SCH (20:33)
[2019-01-30] MEDS: traZODone 50mg tablet PO SCH (20:33)
[2019-01-31] VITALS (7 sets, daily range): BP systolic 109–156; BP diastolic 43–100
--- NOTE | 2019-01-31 06:00 | NUR ---
Problems reprioritized. Patient report given, questions answered & plan of care reviewed with Rekha ACOSTA.
--- NOTE | 2019-01-31 06:41 | NUR ---
Patient in room PCU 3015B. I have received report from Tiffanie ACOSTA and had the opportunity to ask questions and assume patient care.
[2019-01-31] MEDS: carvedilol 6.25mg tablet PO SCH ×2 (07:47→20:28)
[2019-01-31] MEDS: heparin, porcine 5000 units/ml vial SQ SCH ×2 (07:47→20:28)
[2019-01-31] MEDS: magnesium Cl slow-release 64mg tablet PO PRN ×2 (07:47→23:46)
[2019-01-31] MEDS: nicotine 7mg patch - 24hr TD SCH (07:47)
[2019-01-31] MEDS: guaiFENesin ER 600mg tablet PO SCH ×2 (07:48→20:28)
[2019-01-31] MEDS: pantoprazole 40mg Tablet.DR PO SCH (07:48)
[2019-01-31] MEDS: aspirin 81mg tablet.DR PO SCH (07:48)
[2019-01-31] MEDS: lisinopril 20mg tablet PO SCH (07:48)
[2019-01-31] MEDS: allopurinol 300 MG tablet PO SCH (07:48)
[2019-01-31] MEDS: docusate sod 100mg capsule PO SCH ×2 (07:48→20:28)
[2019-01-31] MEDS: levoTHYROXINE 25mcg tablet PO SCH (07:48)
[2019-01-31] MEDS: furosemide 40mg/4ml inj IV SCH (07:48)
[2019-01-31] MEDS: K and/or MAG REPLACEMENT MC SCH (08:00)
[2019-01-31 11:14] LABS: BASOPHILS % (AUTO) 0.4 % (0-1); EOSINOPHILS # (AUTO) 0.1 X10'3 (0-0.9); HEMATOCRIT 27.3 % (42.0-52.0); HEMOGLOBIN 8.7 g/dl (14.0-17.9); LYMPHOCYTES # (AUTO) 0.7 X10'3 (1.1-4.8); LYMPHOCYTES % (AUTO) 12.3 % (21-51); MEAN CORPUSCULAR HEMOGLOBIN 32.4 PG (27.0-31.0); MEAN CORPUSCULAR HGB CONC 31.8 g/dL (33.0-36.5); MEAN CORPUSCULAR VOLUME 101.8 FL (78-98); MONOCYTES # (AUTO) 0.5 X10'3 (0-0.9); MONOCYTES % (AUTO) 8.6 % (2-12); NEUTROPHILS # (AUTO) 4.3 X10'3 (1.8-7.7); NEUTROPHILS % (AUTO) 77.7 % (42-75); PLATELET COUNT 139 X10'3 (140-440); RED BLOOD COUNT 2.68 X10'6 (4.70-6.10); RED CELL DISTRIBUTION WIDTH 17.7 % (11.5-14.5); WHITE BLOOD COUNT 5.5 X10'3 (4.5-11.0)
[2019-01-31 11:26] LABS: ANION GAP 1 (8-16); BLOOD UREA NITROGEN 58 MG/DL (7-18); BUN/CREATININE RATIO 32.6 (5.4-32.0); CALCIUM 8.2 MG/DL (8.5-10.1); CHLORIDE 103 MMOL/L (99-107); CREATININE 1.78 MG/DL (0.60-1.10); GLUCOSE 138 MG/DL (70-104); POTASSIUM 4.3 MMOL/L (3.5-5.1); SODIUM 144 MMOL/L (135-145); TOTAL CARBON DIOXIDE 39.6 MMOL/L (24-32); eGFR 36 ML/MIN
--- NOTE | 2019-01-31 18:00 | NUR ---
Patient in room PCU 3015. I have received report from Rekha ACOSTA and had the opportunity to ask questions and assume patient care.
--- NOTE | 2019-01-31 18:33 | NUR ---
Problems reprioritized. Patient report given, questions answered & plan of care reviewed with Juanita ACOSTA and Danika ACOSTA.
--- NOTE | 2019-01-31 18:47 | NUR ---
Patient in room PCU 3015. I have received report from Rekha ACOSTA and had the opportunity to ask questions and assume patient care.
[2019-01-31] MEDS ORDERED: furosemide 20MG tablet PO ONE (20:00)
[2019-01-31] MEDS: traZODone 50mg tablet PO SCH (20:27)
[2019-01-31] MEDS: famotidine 20mg tablet PO SCH (20:28)
[2019-01-31] MEDS: atorvastatin 10mg tablet PO SCH (20:28)
[2019-02-01 03:00] VITALS: BP 115/69
--- NOTE | 2019-02-01 04:31 | NUR ---
[place] documentation: I have reviewed and agree with all interventions, assessments performed and documented by Danika ACOSTA. [place] Medication Administration: For this medication-pass time frame, all medication were reviewed, dispensed, administered and documented per hospital policy by Danika ACOSTA.
[2019-02-01 06:00] VITALS: BP 108/46
--- NOTE | 2019-02-01 06:17 | NUR ---
Problems reprioritized. Patient report given, questions answered & plan of care reviewed with Rekha ACOSTA.
--- NOTE | 2019-02-01 06:18 | NUR ---
Problems reprioritized. Patient report given, questions answered & plan of care reviewed with Rekha ACOSTA.
--- NOTE | 2019-02-01 06:20 | NUR ---
Patient in room PCU 3015B. I have received report from Juanita ACOSTA and Danika ACOSTA and had the opportunity to ask questions and assume patient care.
[2019-02-01 07:01] LABS: BASOPHILS % (AUTO) 0.9 % (0-1); EOSINOPHILS # (AUTO) 0.1 X10'3 (0-0.9); EOSINOPHILS % (AUTO) 2.1 % (0-6); HEMATOCRIT 25.3 % (42.0-52.0); LYMPHOCYTES # (AUTO) 1.4 X10'3 (1.1-4.8); LYMPHOCYTES % (AUTO) 26.5 % (21-51); MEAN CORPUSCULAR HEMOGLOBIN 32.8 PG (27.0-31.0); MEAN CORPUSCULAR HGB CONC 31.7 g/dL (33.0-36.5); MEAN CORPUSCULAR VOLUME 103.7 FL (78-98); MEAN PLATELET VOLUME 9.8 FL (7.4-10.4); MONOCYTES # (AUTO) 0.5 X10'3 (0-0.9); MONOCYTES % (AUTO) 10.2 % (2-12); NEUTROPHILS # (AUTO) 3.2 X10'3 (1.8-7.7); NEUTROPHILS % (AUTO) 60.3 % (42-75); PLATELET COUNT 123 X10'3 (140-440); RED BLOOD COUNT 2.44 X10'6 (4.70-6.10); RED CELL DISTRIBUTION WIDTH 17.7 % (11.5-14.5); WHITE BLOOD COUNT 5.3 X10'3 (4.5-11.0)
[2019-02-01 07:11] LABS: ALBUMIN 1.9 G/DL (3.4-5.0); ANION GAP 3 (8-16); BLOOD UREA NITROGEN 62 MG/DL (7-18); BUN/CREATININE RATIO 34.8 (5.4-32.0); CALCIUM 8.1 MG/DL (8.5-10.1); CHLORIDE 102 MMOL/L (99-107); CREATININE 1.78 MG/DL (0.60-1.10); GLUCOSE 100 MG/DL (70-104); MAGNESIUM 1.4 MG/DL (1.5-2.4); SODIUM 143 MMOL/L (135-145); TOTAL CARBON DIOXIDE 38.5 MMOL/L (24-32); eGFR 36 ML/MIN
[2019-02-01 07:32] LABS: POTASSIUM 4.8 MMOL/L (3.5-5.1)
[2019-02-01] MEDS: heparin, porcine 5000 units/ml vial SQ SCH (07:57)
[2019-02-01] MEDS: docusate sod 100mg capsule PO SCH (07:57)
[2019-02-01] MEDS: guaiFENesin ER 600mg tablet PO SCH (07:58)
[2019-02-01] MEDS: aspirin 81mg tablet.DR PO SCH (07:58)
[2019-02-01] MEDS: levoTHYROXINE 25mcg tablet PO SCH (07:58)
[2019-02-01] MEDS: nicotine 7mg patch - 24hr TD SCH (07:58)
[2019-02-01] MEDS: pantoprazole 40mg Tablet.DR PO SCH (07:59)
[2019-02-01] MEDS: carvedilol 6.25mg tablet PO SCH (07:59)
[2019-02-01] MEDS: allopurinol 300 MG tablet PO SCH (07:59)
[2019-02-01] MEDS: lisinopril 20mg tablet PO SCH (08:00)
[2019-02-01] MEDS: K and/or MAG REPLACEMENT MC SCH (08:00)
[2019-02-01] MEDS: magnesium Cl slow-release 64mg tablet PO PRN (08:01)
[2019-02-01 11:00] VITALS: BP 98/55
[2019-02-01] MEDS ORDERED: furosemide 40mg tablet PO SCH (11:55)
[2019-02-01 13:13] LABS: RED BLOOD COUNT 2.68 X10'6 (4.70-6.10); RETICULOCYTE % (AUTO) 1.6 % (0.5-1.5)
--- NOTE | 2019-02-01 13:31 | NUR ---
Called report to Lorteta at [facility]. Gave opportunity to ask questions, and all questions answered. Patient has schedule pickup time of 1445.
[2019-02-01 13:53] LABS: % IRON SATURATION 21 % (11-46); IRON 39 UG/DL (53-167); TOTAL IRON BINDING CAPACITY 185 UG/DL (259-388)
--- NOTE | 2019-02-01 15:10 | NUR ---
Patient picked up by Kim Cargo. Patient disconnected from bedside mobile and IV discontinued.All belongings sent with patient. Patient transferred to [facility].
== END 2019-02-01 15:10 | DRG 291 ==
LOC: ER 16:47 → SUR 3N 22:14 → CMPBEDREQ 22:32 → PCU 3S 01-30 04:23
PROVIDERS: ADMIT Internal Medicine; ATTEND Hospitalist
PROC: 0W993ZZ Drainage of Right Pleural Cavity, Percutaneous Approach (ICD-10-PCS; principal; 2019-01-30)
PROC: 5A09357 Assistance with Respiratory Ventilation, Less than 24 Consecutive Hours, Continuous Positive Airway Pressure (ICD-10-PCS; 2019-01-30)
DX: I13.0 Hypertensive heart and chronic kidney disease with heart failure and stage 1 through stage 4 chronic kidney disease, or unspecified chronic kidney disease (principal); G93.41 Metabolic encephalopathy; J96.22 Acute and chronic respiratory failure with hypercapnia; J96.21 Acute and chronic respiratory failure with hypoxia; E43 Unspecified severe protein-calorie malnutrition; E87.2 Acidosis; J91.8 Pleural effusion in other conditions classified elsewhere; I50.813 Acute on chronic right heart failure; E03.9 Hypothyroidism, unspecified; E78.5 Hyperlipidemia, unspecified; I25.10 Atherosclerotic heart disease of native coronary artery without angina pectoris; N18.3 Chronic kidney disease, stage 3 (moderate); K21.9 Gastro-esophageal reflux disease without esophagitis; J44.9 Chronic obstructive pulmonary disease, unspecified; I36.1 Nonrheumatic tricuspid (valve) insufficiency; G89.29 Other chronic pain; M10.9 Gout, unspecified; M19.90 Unspecified osteoarthritis, unspecified site; M54.9 Dorsalgia, unspecified; Z60.2 Problems related to living alone; I27.81 Cor pulmonale (chronic); D53.9 Nutritional anemia, unspecified; I95.9 Hypotension, unspecified; Z88.6 Allergy status to analgesic agent; Z79.899 Other long term (current) drug therapy; Z79.82 Long term (current) use of aspirin; Z95.1 Presence of aortocoronary bypass graft; Z95.0 Presence of cardiac pacemaker; Z68.26 Body mass index [BMI] 26.0-26.9, adult
CPT/HCPCS: 32555; 36415; 36600; 71045; 76604; 80048; 80053; 81001; 82607; 82803; 83540; 83550; 83735; 83880; 84132; 84443; 84484; 85018; 85025; 85045; 87081; 93005; 93306; 94660; 94760; 96374; 96375; 97110; 97116; 97161; 97530; 99285; G0378; J1644; J1940; J2270; J2405